=== PATIENT | male | born 1985 | race Caucasian/White ===

== ENCOUNTER 2023-12-19 22:43 | Emergency (ER) | payer SELFPAY ==
[2023-12-19 22:47] VITALS: BP 115/91; PULSE 117; RESP 18; TEMP 36.9; O2SAT 97; BMI 25.1
[2023-12-19 23:29] LABS: Add Manual Diff / Slide Review NO; Basophils Absolute Auto 0 /uL (0-100); Basophils Percent Auto 0.8 % (0-2); Eosinophils Absolute Auto 0 /uL (0-450); Eosinophils Percent Auto 0.4 % (2-4); Hematocrit 45.3 % (41-53); Hemoglobin 15.6 g/dL (13.5-17.5); Lymphocytes Absolute Auto 3400 /uL (1100-4500); Lymphocytes Percent Auto 57.3 % (25-40); Mean Corpuscular HGB Conc 34.5 % (30-36); Mean Corpuscular Hemoglobin 33.3 PG (26-34); Mean Corpuscular Volume 96.6 fL (80-100); Monocytes Absolute Auto 300 /uL (0-900); Monocytes Percent Auto 4.3 % (3-14); Neutrophils Absolute Auto 2200 /uL (1500-7000); Neutrophils Percent Auto 37.2 % (50-75); Platelet Count 388 X10^3/uL (150-400); Red Blood Cell Count 4.69 X10^6/uL (4.5-5.9); Red Cell Distribution Width 15.6 % (11.6-14.8)
[2023-12-19 23:38] LABS: Acetaminophen < 10 ug/mL (10-30); Alanine Aminotransferase 19 IU/L (<50); Albumin 4.7 g/dL (3.5-5.0); Albumin Globulin Ratio 1.3 (1.0-2.8); Alkaline Phosphatase 115 U/L (38-126); Aspartate Aminotransferase 35 IU/L (17-59); BUN Creatinine Ratio 17.4 (6-22); Bilirubin Total 0.4 mg/dL (0.2-1.3); Blood Urea Nitrogen 15 mg/dL (9-20); Calcium 8.8 mg/dL (8.4-10.2); Carbon Dioxide 30 mmol/L (22-32); Chloride 107 mmol/L (98-107); Estimated Glomerular Filt Rate > 60 mL/min (>60); Globulin 3.5 g/dL (1.7-4.1); Glucose 102 mg/dL (70-100); HEMOLYSIS < 15 (0-50); Potassium 3.8 mmol/L (3.4-5.1); Salicylate < 1.0 mg/dL (<20); Sodium 146 mmol/L (137-145); Total Protein 8.2 g/dL (6.3-8.2)
[2023-12-19 23:46] LABS: Ethanol (ETOH) 326 mg/dL
[2023-12-19 23:59] LABS: Free T4, Direct Thyroxine 0.76 ng/dL (0.78-2.19)
[2023-12-20] VITALS (19 sets, daily range): BP systolic 121–163; BP diastolic 70–93; PULSE 78–107; RESP 18; O2SAT 95–98
[2023-12-20 00:13] LABS: Thyroid Stimulating Hormone 1.94 uIU/mL (0.47-4.68)
--- NOTE | 2023-12-20 02:09 | ED.ALCOHOL ---
HPI - Alcohol <Luz Kerr DO - Last Filed: 12/20/23 22:14> General Chief Complaint: Toxicology Problem Stated Complaint: detox Time Seen by Provider: 12/20/23 02:09 Source: patient Mode of arrival: Ambulatory History of Present Illness HPI narrative: Patient is a 38-year-old male with history of alcohol use disorder presenting today for wanting detox. He reports that he drinks about a gal of whiskey every day and a half. He is previously gone to detox a handful of times. He has done it at home by himself as well and has had seizures before. He is requesting detox. He denies any other drug use. He states that he recently moved back here after living in [place] for a number of years. He denies any other medical problems. Related Data Home Medications Medication Instructions Recorded Confirmed No Known Home Medications 12/20/23 12/20/23 Allergies Allergy/AdvReac Type Severity Reaction Status Date / Time No Known Drug Allergies Allergy Verified 12/20/23 04:12 Patient History <Luz Kerr DO - Last Filed: 12/20/23 22:14> Social History Smoking Status: Current every day smoker Smoking Status: Current every day smoker tobacco type: cigarettes alcohol intake frequency: 3 or more drinks per day Alcohol type: hard liquor Substance Use Type: marijuana Exam <DO Tali Harmon Last Filed: 12/20/23 22:14> Initial Vital Signs Initial Vital Signs: Vital Signs Temperature 98.4 F 12/19/23 22:47 Pulse Rate 117 H 12/19/23 22:47 Respiratory Rate 18 12/19/23 22:47 Blood Pressure 115/91 H 12/19/23 22:47 Pulse Oximetry 97 12/19/23 22:47 Oxygen Delivery Method Room Air 12/19/23 22:47 GENERAL: Alert 38-year-old male HEENT: Head atraumatic,EOMI, pupils reactive, face symmetric, moist mucous membranes CARDIOVASCULAR: Regular rate and rhythm without murmurs, rubs or gallops. RESPIRATORY: Breath sounds equal bilaterally, no wheezes rales or rhonchi. ABDOMEN: Soft, nontender. Normoactive bowel sounds all 4 quadrants. No guarding or rebound. EXTREMITIES: Normal range of motion, no clubbing or edema. Neurovascularly intact NEUROLOGICAL: Alert and oriented x4.Normal gait and speech. SKIN: Warm, dry, no laceration, no petechiae, no rashes or lesions. <Compa De La Cruz DO - Last Filed: 12/20/23 08:37> Initial Vital Signs Initial Vital Signs: Vital Signs Temperature 98.4 F 12/19/23 22:47 Pulse Rate 117 H 12/19/23 22:47 Respiratory Rate 18 12/19/23 22:47 Blood Pressure 115/91 H 12/19/23 22:47 Pulse Oximetry 97 12/19/23 22:47 Oxygen Delivery Method Room Air 12/19/23 22:47 Course <Luz Kerr DO - Last Filed: 12/20/23 22:14> Orders Ordered: Discontinued Medications Phenobarbital (Phenobarbital 65 Mg/Ml Vial) 130 mg IV NOW ONE Stop: 12/20/23 03:00 Last Admin: 12/20/23 03:22 Dose: 130 mg Documented By: KD Sodium Chloride (Sodium Chloride 0.9% Flush) 10 ml IV BID JESSY Last Admin: 12/20/23 09:49 Dose: Not Given Documented By: RB Sodium Chloride (Sodium Chloride 0.9% Flush) 10 ml IV PRN PRN PRN Reason: Flush Vital Signs Vital signs: Vital Signs - 8 hr 12/20/23 00:53 12/20/23 02:49 12/20/23 02:50 Pulse Rate 78 91 H Respiratory Rate 18 Blood Pressure 126/70 121/78 Pulse Oximetry 97 97 Oxygen Delivery Method Room Air 12/20/23 02:50 12/20/23 03:00 12/20/23 03:00 Pulse Rate 90 89 Respiratory Rate Blood Pressure 121/76 Pulse Oximetry 97 97 Oxygen Delivery Method 12/20/23 03:33 12/20/23 03:33 12/20/23 04:00 Pulse Rate 87 Respiratory Rate Blood Pressure 141/82 H 132/93 H Pulse Oximetry 97 Oxygen Delivery Method 12/20/23 04:00 12/20/23 04:30 12/20/23 04:30 Pulse Rate 90 85 Respiratory Rate Blood Pressure 123/86 Pulse Oximetry 95 95 Oxygen Delivery Method 12/20/23 05:00 12/20/23 05:00 12/20/23 05:30 Pulse Rate 107 H 93 H Respiratory Rate Blood Pressure 125/82 Pulse Oximetry 96 95 Oxygen Delivery Method 12/20/23 05:30 12/20/23 06:00 12/20/23 06:00 Pulse Rate 90 Respiratory Rate Blood Pressure 128/85 134/82 Pulse Oximetry 96 Oxygen Delivery Method 12/20/23 06:30 Pulse Rate 99 H Respiratory Rate Blood Pressure Pulse Oximetry 98 Oxygen Delivery Method <Compa De La Cruz DO - Last Filed: 12/20/23 08:37> Orders Ordered: Discontinued Medications Phenobarbital (Phenobarbital 65 Mg/Ml Vial) 130 mg IV NOW ONE Stop: 12/20/23 03:00 Last Admin: 12/20/23 03:22 Dose: 130 mg Documented By: KD Sodium Chloride (Sodium Chloride 0.9% Flush) 10 ml IV BID JESSY Last Admin: 12/20/23 09:49 Dose: Not Given Documented By: RB Sodium Chloride (Sodium Chloride 0.9% Flush) 10 ml IV PRN PRN PRN Reason: Flush Vital Signs Vital signs: Vital Signs - 8 hr 12/20/23 00:53 12/20/23 02:49 12/20/23 02:50 Pulse Rate 78 91 H Respiratory Rate 18 Blood Pressure 126/70 121/78 Pulse Oximetry 97 97 Oxygen Delivery Method Room Air 12/20/23 02:50 12/20/23 03:00 12/20/23 03:00 Pulse Rate 90 89 Respiratory Rate Blood Pressure 121/76 Pulse Oximetry 97 97 Oxygen Delivery Method 12/20/23 03:33 12/20/23 03:33 12/20/23 04:00 Pulse Rate 87 Respiratory Rate Blood Pressure 141/82 H 132/93 H Pulse Oximetry 97 Oxygen Delivery Method 12/20/23 04:00 12/20/23 04:30 12/20/23 04:30 Pulse Rate 90 85 Respiratory Rate Blood Pressure 123/86 Pulse Oximetry 95 95 Oxygen Delivery Method 12/20/23 05:00 12/20/23 05:00 12/20/23 05:30 Pulse Rate 107 H 93 H Respiratory Rate Blood Pressure 125/82 Pulse Oximetry 96 95 Oxygen Delivery Method 12/20/23 05:30 12/20/23 06:00 12/20/23 06:00 Pulse Rate 90 Respiratory Rate Blood Pressure 128/85 134/82 Pulse Oximetry 96 Oxygen Delivery Method 12/20/23 06:30 Pulse Rate 99 H Respiratory Rate Blood Pressure Pulse Oximetry 98 Oxygen Delivery Method MDM - Alcohol <Luz Kerr, DO - Last Filed: 12/20/23 22:14> Lab Data 12/19/23 23:16 12/19/23 23:16 Labs: Lab Results 12/19/23 12/20/23 12/20/23 Range/Units 23:16 02:15 02:15 WBC 6.0 (4.5-11.0) X10^3/uL RBC 4.69 (4.5-5.9) X10^6/uL Hgb 15.6 (13.5-17.5) g/dL Hct 45.3 (41-53) % MCV 96.6 (80-100) fL MCH 33.3 (26-34) PG MCHC 34.5 (30-36) % RDW 15.6 H (11.6-14.8) % Plt Count 388 (150-400) X10^3/uL Neut % (Auto) 37.2 L (50-75) % Lymph % (Auto) 57.3 H (25-40) % Hutchinson % (Auto) 4.3 (3-14) % Eos % (Auto) 0.4 L (2-4) % Baso % (Auto) 0.8 (0-2) % Neut # (Auto) 2200 (1352-6249) /uL Lymph # (Auto) 3400 (5615-7509) /uL Hutchinson # (Auto) 300 (0-900) /uL Eos # (Auto) 0 (0-450) /uL Baso # (Auto) 0 (0-100) /uL Sodium 146 H (137-145) mmol/L Potassium 3.8 (3.4-5.1) mmol/L Chloride 107 (98-107) mmol/L Carbon Dioxide 30 (22-32) mmol/L BUN 15 (9-20) mg/dL Creatinine 0.86 (0.66-1.25) mg/dL Estimated GFR > 60 (>60) mL/min BUN/Creatinine Ratio 17.4 (6-22) Glucose 102 H (70-100) mg/dL Calcium 8.8 (8.4-10.2) mg/dL Total Bilirubin 0.4 (0.2-1.3) mg/dL AST 35 (17-59) IU/L ALT 19 (<50) IU/L Alkaline Phosphatase 115 (38-126) U/L Total Protein 8.2 (6.3-8.2) g/dL Albumin 4.7 (3.5-5.0) g/dL Globulin 3.5 (1.7-4.1) g/dL Albumin/Globulin Ratio 1.3 (1.0-2.8) TSH 1.94 (0.47-4.68) uIU/mL Free T4 0.76 L (0.78-2.19) ng/dL Urine Color Yellow Urine Appearance Clear Urine pH 6.5 Normal (4.5-8.0) Ur Specific Dolliver 1.015 (1.000-1.035) Urine Protein Negative (Negative) Urine Glucose (UA) Negative (Negative) g/dL Urine Ketones Negative (NEGATIVE) Urine Occult Blood Trace-intact (Negative) Urine Nitrate Negative (Negative) Urine Bilirubin Negative (NEGATIVE) Urine Urobilinogen 0.2 (0.2) E.U./dL Ur Leukocyte Esterase Negative (NEGATIVE) Urine RBC 1-5/hpf (0-5/HPF) Urine WBC 0-1/hpf (0-5/HPF) Ur Squamous Epith Cells 0-1 /hpf (0-5/HPF) Urine Bacteria None seen (None) Ur Culture Indicated? Cult not indicated Vol Urine Centrifuged 10ml (spun) Salicylates < 1.0 (<20) mg/dL U Opiates 300ng/mL cut Negative (Negative) Ur Oxycodone Screen Negative (Negative) Urine Methadone Screen Negative (Negative) Acetaminophen < 10 (10-30) ug/mL Ur Barbiturates Screen Negative (Negative) U Tricyclic Antidepress Negative (Negative) Ur Phencyclidine Scrn Negative (Negative) Ur Amphetamines Screen Negative (Negative) U Methamphetamines Scrn Positive H (Negative) Ur MDMA Scrn (Ecstasy) Negative (Negative) U Benzodiazepines Scrn Negative (Negative) Urine Cocaine Screen Negative (Negative) U Marijuana (THC) Screen Positive H (Negative) Urine Specific Dolliver Normal (Normal) Ethyl Alcohol 326 H ( - 10) mg/dL Ur Creatinine Normal (Normal) SARS-CoV-2 (PCR) (Negative) 12/20/23 12/20/23 Range/Units 03:15 06:15 WBC (4.5-11.0) X10^3/uL RBC (4.5-5.9) X10^6/uL Hgb (13.5-17.5) g/dL Hct (41-53) % MCV (80-100) fL MCH (26-34) PG MCHC (30-36) % RDW (11.6-14.8) % Plt Count (150-400) X10^3/uL Neut % (Auto) (50-75) % Lymph % (Auto) (25-40) % Hutchinson % (Auto) (3-14) % Eos % (Auto) (2-4) % Baso % (Auto) (0-2) % Neut # (Auto) (8680-7906) /uL Lymph # (Auto) (9330-1719) /uL Hutchinson # (Auto) (0-900) /uL Eos # (Auto) (0-450) /uL Baso # (Auto) (0-100) /uL Sodium (137-145) mmol/L Potassium (3.4-5.1) mmol/L Chloride (98-107) mmol/L Carbon Dioxide (22-32) mmol/L BUN (9-20) mg/dL Creatinine (0.66-1.25) mg/dL Estimated GFR (>60) mL/min BUN/Creatinine Ratio (6-22) Glucose (70-100) mg/dL Calcium (8.4-10.2) mg/dL Total Bilirubin (0.2-1.3) mg/dL AST (17-59) IU/L ALT (<50) IU/L Alkaline Phosphatase (38-126) U/L Total Protein (6.3-8.2) g/dL Albumin (3.5-5.0) g/dL Globulin (1.7-4.1) g/dL Albumin/Globulin Ratio (1.0-2.8) TSH (0.47-4.68) uIU/mL Free T4 (0.78-2.19) ng/dL Urine Color Urine Appearance Urine pH (4.5-8.0) Ur Specific Dolliver (1.000-1.035) Urine Protein (Negative) Urine Glucose (UA) (Negative) g/dL Urine Ketones (NEGATIVE) Urine Occult Blood (Negative) Urine Nitrate (Negative) Urine Bilirubin (NEGATIVE) Urine Urobilinogen (0.2) E.U./dL Ur Leukocyte Esterase (NEGATIVE) Urine RBC (0-5/HPF) Urine WBC (0-5/HPF) Ur Squamous Epith Cells (0-5/HPF) Urine Bacteria (None) Ur Culture Indicated? Vol Urine Centrifuged Salicylates (<20) mg/dL U Opiates 300ng/mL cut (Negative) Ur Oxycodone Screen (Negative) Urine Methadone Screen (Negative) Acetaminophen (10-30) ug/mL Ur Barbiturates Screen (Negative) U Tricyclic Antidepress (Negative) Ur Phencyclidine Scrn (Negative) Ur Amphetamines Screen (Negative) U Methamphetamines Scrn (Negative) Ur MDMA Scrn (Ecstasy) (Negative) U Benzodiazepines Scrn (Negative) Urine Cocaine Screen (Negative) U Marijuana (THC) Screen (Negative) Urine Specific Dolliver (Normal) Ethyl Alcohol 175 H ( - 10) mg/dL Ur Creatinine (Normal) SARS-CoV-2 (PCR) Negative (Negative) MDM Narrative Medical decision making narrative: Patient 38-year-old male with history of alcohol abuse problem presenting today for wanting detox. He is 1 have alcohol level of 326, urine drug screen positive for methamphetamine and marijuana. Other blood work does show sodium of 146 but everything else within normal limits bilirubin year old 0.4, AST 45 ALT 19 We have called detox placed awaiting call back. Patient is starting to feel a little bit anxious in his requesting something to help <Compa De La Cruz, - Last Filed: 12/20/23 08:37> Lab Data Labs: Lab Results 12/19/23 12/20/23 12/20/23 Range/Units 23:16 02:15 02:15 WBC 6.0 (4.5-11.0) X10^3/uL RBC 4.69 (4.5-5.9) X10^6/uL Hgb 15.6 (13.5-17.5) g/dL Hct 45.3 (41-53) % MCV 96.6 (80-100) fL MCH 33.3 (26-34) PG MCHC 34.5 (30-36) % RDW 15.6 H (11.6-14.8) % Plt Count 388 (150-400) X10^3/uL Neut % (Auto) 37.2 L (50-75) % Lymph % (Auto) 57.3 H (25-40) % Hutchinson % (Auto) 4.3 (3-14) % Eos % (Auto) 0.4 L (2-4) % Baso % (Auto) 0.8 (0-2) % Neut # (Auto) 2200 (7932-8810) /uL Lymph # (Auto) 3400 (2661-6228) /uL Hutchinson # (Auto) 300 (0-900) /uL Eos # (Auto) 0 (0-450) /uL Baso # (Auto) 0 (0-100) /uL Sodium 146 H (137-145) mmol/L Potassium 3.8 (3.4-5.1) mmol/L Chloride 107 (98-107) mmol/L Carbon Dioxide 30 (22-32) mmol/L BUN 15 (9-20) mg/dL Creatinine 0.86 (0.66-1.25) mg/dL Estimated GFR > 60 (>60) mL/min BUN/Creatinine Ratio 17.4 (6-22) Glucose 102 H (70-100) mg/dL Calcium 8.8 (8.4-10.2) mg/dL Total Bilirubin 0.4 (0.2-1.3) mg/dL AST 35 (17-59) IU/L ALT 19 (<50) IU/L Alkaline Phosphatase 115 (38-126) U/L Total Protein 8.2 (6.3-8.2) g/dL Albumin 4.7 (3.5-5.0) g/dL Globulin 3.5 (1.7-4.1) g/dL Albumin/Globulin Ratio 1.3 (1.0-2.8) TSH 1.94 (0.47-4.68) uIU/mL Free T4 0.76 L (0.78-2.19) ng/dL Urine Color Yellow Urine Appearance Clear Urine pH 6.5 Normal (4.5-8.0) Ur Specific Dolliver 1.015 (1.000-1.035) Urine Protein Negative (Negative) Urine Glucose (UA) Negative (Negative) g/dL Urine Ketones Negative (NEGATIVE) Urine Occult Blood Trace-intact (Negative) Urine Nitrate Negative (Negative) Urine Bilirubin Negative (NEGATIVE) Urine Urobilinogen 0.2 (0.2) E.U./dL Ur Leukocyte Esterase Negative (NEGATIVE) Urine RBC 1-5/hpf (0-5/HPF) Urine WBC 0-1/hpf (0-5/HPF) Ur Squamous Epith Cells 0-1 /hpf (0-5/HPF) Urine Bacteria None seen (None) Ur Culture Indicated? Cult not indicated Vol Urine Centrifuged 10ml (spun) Salicylates < 1.0 (<20) mg/dL U Opiates 300ng/mL cut Negative (Negative) Ur Oxycodone Screen Negative (Negative) Urine Methadone Screen Negative (Negative) Acetaminophen < 10 (10-30) ug/mL Ur Barbiturates Screen Negative (Negative) U Tricyclic Antidepress Negative (Negative) Ur Phencyclidine Scrn Negative (Negative) Ur Amphetamines Screen Negative (Negative) U Methamphetamines Scrn Positive H (Negative) Ur MDMA Scrn (Ecstasy) Negative (Negative) U Benzodiazepines Scrn Negative (Negative) Urine Cocaine Screen Negative (Negative) U Marijuana (THC) Screen Positive H (Negative) Urine Specific Dol[place] Normal (Normal) Ethyl Alcohol 326 H ( - 10) mg/dL Ur Creatinine Normal (Normal) SARS-CoV-2 (PCR) (Negative) 12/20/23 12/20/23 Range/Units 03:15 06:15 WBC (4.5-11.0) X10^3/uL RBC (4.5-5.9) X10^6/uL Hgb (13.5-17.5) g/dL Hct (41-53) % MCV (80-100) fL MCH (26-34) PG MCHC (30-36) % RDW (11.6-14.8) % Plt Count (150-400) X10^3/uL Neut % (Auto) (50-75) % Lymph % (Auto) (25-40) % Hutchinson % (Auto) (3-14) % Eos % (Auto) (2-4) % Baso % (Auto) (0-2) % Neut # (Auto) (8972-4597) /uL Lymph # (Auto) (7846-0534) /uL Hutchinson # (Auto) (0-900) /uL Eos # (Auto) (0-450) /uL Baso # (Auto) (0-100) /uL Sodium (137-145) mmol/L Potassium (3.4-5.1) mmol/L Chloride (98-107) mmol/L Carbon Dioxide (22-32) mmol/L BUN (9-20) mg/dL Creatinine (0.66-1.25) mg/dL Estimated GFR (>60) mL/min BUN/Creatinine Ratio (6-22) Glucose (70-100) mg/dL Calcium (8.4-10.2) mg/dL Total Bilirubin (0.2-1.3) mg/dL AST (17-59) IU/L ALT (<50) IU/L Alkaline Phosphatase (38-126) U/L Total Protein (6.3-8.2) g/dL Albumin (3.5-5.0) g/dL Globulin (1.7-4.1) g/dL Albumin/Globulin Ratio (1.0-2.8) TSH (0.47-4.68) uIU/mL Free T4 (0.78-2.19) ng/dL Urine Color Urine Appearance Urine pH (4.5-8.0) Ur Specific Dolliver (1.000-1.035) Urine Protein (Negative) Urine Glucose (UA) (Negative) g/dL Urine Ketones (NEGATIVE) Urine Occult Blood (Negative) Urine Nitrate (Negative) Urine Bilirubin (NEGATIVE) Urine Urobilinogen (0.2) E.U./dL Ur Leukocyte Esterase (NEGATIVE) Urine RBC (0-5/HPF) Urine WBC (0-5/HPF) Ur Squamous Epith Cells (0-5/HPF) Urine Bacteria (None) Ur Culture Indicated? Vol Urine Centrifuged Salicylates (<20) mg/dL U Opiates 300ng/mL cut (Negative) Ur Oxycodone Screen (Negative) Urine Methadone Screen (Negative) Acetaminophen (10-30) ug/mL Ur Barbiturates Screen (Negative) U Tricyclic Antidepress (Negative) Ur Phencyclidine Scrn (Negative) Ur Amphetamines Screen (Negative) U Methamphetamines Scrn (Negative) Ur MDMA Scrn (Ecstasy) (Negative) U Benzodiazepines Scrn (Negative) Urine Cocaine Screen (Negative) U Marijuana (THC) Screen (Negative) Urine Specific Dolliver (Normal) Ethyl Alcohol 175 H ( - 10) mg/dL Ur Creatinine (Normal) SARS-CoV-2 (PCR) Negative (Negative) MDM Narrative Medical decision making narrative: Patient 38-year-old male with history of alcohol abuse problem presenting today for wanting detox. He is 1 have alcohol level of 326, urine drug screen positive for methamphetamine and marijuana. Other blood work does show sodium of 146 but everything else within normal limits bilirubin year old 0.4, AST 45 ALT 19 We have called detox placed awaiting call back. Patient is starting to feel a little bit anxious in his requesting something to help Dr De La Cruz: Received turned over. Patient continues to be medically cleared. A bed has been found at detox. A ride has been arranged. Patient is stable to go to detox. Discharge Plan Departure Patient Disposition: Home Clinical Impression: Alcoholic intoxication Instructions: DI for Alcohol Use Disorder Activity Restrictions/Additional Instructions: You are being discharged from the emergency department to go to the [facility] stabilization facility. It is located at [address] [place] [address] in [facility]. . Prescriptions: No Action No Known Home Medications Stand Alone Forms: Patient Portal/API
[2023-12-20 02:24] LABS: Appearance Urine UA CLEAR; Bilirubin Urine UA NEGATIVE (NEGATIVE); Color Urine UA YELLOW; Glucose Urine UA NEGATIVE (Negative); Ketones Urine UA NEGATIVE (NEGATIVE); Leukocyte Esterase Urine UA NEGATIVE (NEGATIVE); Nitrite Urine UA NEGATIVE (Negative); Occult Blood Urine UA TRACE-INTACT (Negative); Protein Urine UA NEGATIVE (Negative); Specific Gravity Urine UA 1.015 (1.000-1.035); Urobilinogen Urine UA 0.2 E.U./dL (0.2); pH Urine UA 6.5 (4.5-8.0)
[2023-12-20 02:27] LABS: UR Morphine/Opiate cutoff 300 Negative (Negative); Ur Creatinine Normal (Normal); Ur Specific Gravity Normal (Normal); Urine Amphetamines Negative (Negative); Urine Barbiturates Negative (Negative); Urine Benzodiazepines Negative (Negative); Urine Cocaine Negative (Negative); Urine MDMA Negative (Negative); Urine Methadone Negative (Negative); Urine Methamphetamines Positive (Negative); Urine Oxycodone Negative (Negative); Urine Phencyclidine Negative (Negative); Urine Tetrahydrocannabinol Positive (Negative); Urine Tricyclic Antidepressant Negative (Negative); Urine pH Normal (Normal)
[2023-12-20 02:31] LABS: Bacteria Urine None Seen; Culture Indicated Urine Cult Not Indicated; RBC Urine 1-5/HPF (0-5/HPF); Squamous Epithelial Cell Urine 0-1 /HPF (0-5/HPF); Urine Volume 10mL (spun); WBC Urine 0-1/HPF (0-5/HPF)
[2023-12-20] MEDS: PHENobarbital 65 MG/ML VIAL 130 MG IV (03:22)
[2023-12-20 03:34] LABS: COVID19 -Nasal RAPID Negative (Negative)
[2023-12-20 06:37] LABS: Ethanol (ETOH) 175 mg/dL
--- NOTE | 2023-12-20 10:21 | PC.NURSE ---
This RN called and talked to Allen at [facility] for report.
== END 2023-12-20 10:10 | disposition home or self-care (01) ==
PROVIDERS: Emergency Medicine; Emergency Provider Emergency Medicine
DX: F10.129 Alcohol abuse with intoxication, unspecified (principal); F15.90 Other stimulant use, unspecified, uncomplicated; F12.90 Cannabis use, unspecified, uncomplicated; Y90.6 Blood alcohol level of 120-199 mg/100 ml; Z11.52 Encounter for screening for COVID-19
CPT/HCPCS: 36415; 80053; 80305; 80320; 80329; 81001; 84439; 84443; 85025; 87635; 96374; 99284; G0480; J2560